=== PATIENT | female | born 1980 | race Caucasian/White ===

== ENCOUNTER 2018-10-19 12:46 | Outpatient (CLI) | payer MEDICAID ==
[~2018-10-19] VITALS: Ht 157.5 cm; Wt 65.7 kg
[~2018-10-19 12:46] MED LIST: PREN1TAB49 PO; [UNRECOGNIZED DRUG - OTHER]
[2018-10-19 13:38] VITALS: Ht 157.5 cm; Wt 65.7 kg
[2018-10-19 13:39] VITALS: BP 101/69; PULSE 67; RESP 18
== END 2018-10-19 17:00 | disposition home or self-care (01) ==
LOC: OBT 12:46 → L-D 12:48 → OBT 17:00
PROVIDERS: ATTEND Obstetrics & Gynecology
DX: O23.42 Unspecified infection of urinary tract in pregnancy, second trimester (principal); O26.892 Other specified pregnancy related conditions, second trimester; R10.2 Pelvic and perineal pain; O09.522 Supervision of elderly multigravida, second trimester; O34.212 Maternal care for vertical scar from previous cesarean delivery; Z3A.21 21 weeks gestation of pregnancy
CPT/HCPCS: 76817; 76818; 80053; 81001; 85025; 87086; Z7500; G0463

== ENCOUNTER 2018-12-01 12:21 | Outpatient (CLI) | payer MEDICAID ==
[~2018-12-01] VITALS: Ht 154.9 cm; Wt 69.0 kg
[2018-12-01 12:42] VITALS: Ht 154.9 cm; Wt 69.0 kg
[2018-12-01 12:43] VITALS: BP 105/68; PULSE 75; RESP 20
== END 2018-12-01 15:15 | disposition home or self-care (01) ==
LOC: OBT 12:21 → L-D 12:23 → OBT 15:15
PROVIDERS: ATTEND Obstetrics & Gynecology
DX: O26.892 Other specified pregnancy related conditions, second trimester (principal); Z3A.27 27 weeks gestation of pregnancy; N89.8 Other specified noninflammatory disorders of vagina
CPT/HCPCS: 76817; 76818; 81001; 87086; Z7500; G0463